=== PATIENT | male | born 1955 | race Caucasian/White ===

== ENCOUNTER 2019-11-28 14:36 | Outpatient (CLI) | payer BC ==
--- NOTE | 2019-11-28 15:00 | RAD ---
EXAM: Chest 2 views: HISTORY: Injury from a fall COMPARISON: None. FINDINGS: Heart size:Within normal limits. Lungs:Clear of acute process. Atherosclerotic changes of the aorta. No confluent pneumonia, overt edema, pleural effusion, pneumothorax, or other significant acute proce ss. IMPRESSION: Atherosclerosis of the aorta. No acute intrathoracic disease. 3
== END 2019-11-28 14:37 | disposition home or self-care (01) ==
LOC: SCSRAD 14:36
PROVIDERS: ATTEND Nurse Practitioner Family
DX: R07.81 Pleurodynia (principal); I70.0 Atherosclerosis of aorta
CPT/HCPCS: 71046

== ENCOUNTER 2024-10-10 12:30 | Outpatient (CLI) | payer MEDICARE, BC | END 2024-10-10 12:31 | disposition home or self-care (01) | LOC: PET 12:30 | PROVIDERS: ATTEND Internal Medicine Hematology & Oncology | DX: C34.11 Malignant neoplasm of upper lobe, right bronchus or lung (principal); C91.10 Chronic lymphocytic leukemia of B-cell type not having achieved remission; C79.51 Secondary malignant neoplasm of bone; C79.89 Secondary malignant neoplasm of other specified sites | CPT/HCPCS: 78815; A9552 ==

== ENCOUNTER 2024-10-13 09:01 | Outpatient (CLI) | payer MEDICARE, BC ==
[2024-10-13] MEDS ORDERED: Magnevist 469MG/ML 20 ML VIAL ONE (15:54)
== END 2024-10-13 09:02 | disposition home or self-care (01) ==
LOC: PET 09:01
PROVIDERS: ATTEND Internal Medicine Hematology & Oncology
DX: C91.10 Chronic lymphocytic leukemia of B-cell type not having achieved remission (principal); C34.11 Malignant neoplasm of upper lobe, right bronchus or lung
CPT/HCPCS: 70553; 76376

== ENCOUNTER 2024-10-18 09:19 | Emergency (ER) | payer MEDICARE, BC ==
[~2024-10-18 09:19] MED LIST: Iopamidol-370 76% 500 ML MDV (1 ML CHARGE) ONE
[2024-10-18 10:52] LABS: Anion Gap 14 mmol/L (10-20); BUN (Urea Nitrogen) 8 mg/dL (8.4-25.7); Calc. Creatinine Clearance 0 mL/min (70-130); Calcium 8.4 mg/dL (7.8-10.44); Carbon Dioxide 24 mmol/L (23-31); Chloride 97 mmol/L (98-107); Estimated GFR 108; Glucose 147 mg/dL (80-115); Potassium 3.6 mmol/L (3.5-5.1); Sodium 131 mmol/L (136-145)
[2024-10-18 11:23] LABS: Troponin I Less than 0.010 ng/mL (< 0.028)
[2024-10-18 11:31] LABS: #Basophils 0.04 10x3/uL (0.0-0.2); %Basophils 0.2 % (0.0-1.0); %Eosinophils 0.5 % (0.0-10.0); %Lymphocytes 38.1 % (21.0-51.0); %Monocytes 6.5 % (0.0-10.0); %Neutrophils 54.1 % (42.0-75.0); Hematocrit 42.3 % (42.0-52.0); Hemoglobin 14.7 g/dL (14.0-18.0); Mean Corpuscular HGB CONC 34.8 g/dL (32.0-36.0); Mean Corpuscular Hemoglobin 31.3 pg (27.0-31.0); Mean Platelet Volume 9.7 fL (7.4-10.4); Platelet Count 420 10x3/uL (130-400); RBC Distribution Width 12.7 % (11.5-14.5)
== END 2024-10-18 17:45 | disposition home or self-care (01) ==
LOC: ERS 09:19
DX: J18.9 Pneumonia, unspecified organism (principal); R91.8 Other nonspecific abnormal finding of lung field; I48.91 Unspecified atrial fibrillation; Z55.0 Illiteracy and low-level literacy; Z87.891 Personal history of nicotine dependence; Z79.899 Other long term (current) drug therapy
CPT/HCPCS: 36415; 71275; 74177; 80048; 83880; 84484; 85025; 85379; 86850; 86900; 86901; 93005; 96365; 96366; 96367